=== PATIENT | female | born 1990 | race Caucasian/White ===

== ENCOUNTER 2016-02-29 16:12 | Emergency (ER) | payer BC, MEDICAID ==
[2016-02-29] MEDS ORDERED: DEXAMETHASONE SOD PHOSPHATE 10MG/ML VIAL PO ONE (17:19)
--- NOTE | 2016-02-29 17:25 | Emergency Department Record ---
History of Present Illness - General Chief complaint: ENT Stated complaint: EAR PAIN,PRIETO Time Seen by Provider: 02/29/16 17:13 Source: Patient Mode of Arrival: Ambulatory Limitations: No limitations - History of Present Illness Initial comments: 25 yo female present with sinus pain, drainage, ear pain and mild sore throat. No fevers. The nasal discharge is some what discolored. Onset/Timin -: Days(s) Severity: Mild Severity scale (1-10): 2 Quality: Aching Improves with: None Worsens with: None Associated Symptoms: Cough, Fever, Other - Related Data Home Medications Medication Instructions Recorded Confirmed Last Taken Sertraline HCl [Zoloft] 50 mg PO QD tab 01/19/16 02/29/16 Unknown Pnv95/Ferrous Fumarate/FA 1 each PO DAILY 02/29/16 02/29/16 02/29/16 [ Tablet] Previous Rx's Medication Instructions Recorded Amoxicillin [Amoxil] 500 mg PO TID #30 tab 02/29/16 Allergies Allergy/AdvReac Type Severity Reaction Status Date / Time minocycline Allergy hives Verified 02/29/16 16:32 Travel Screening - Travel/Exposure Within Last 30 Days Have you traveled within the last 30 days?: No - Travel Symptoms Symptom Screening: None Review of Systems Constitutional: Denies: Chills, Fever, Malaise, Weakness Eyes: Denies: Eye discharge, Eye pain, Photophobia, Vision change ENT: Reports: Congestion, Ear pain, Throat pain. Denies: Epistaxis Respiratory: Reports: Cough. Denies: Dyspnea, Hemoptysis, Stridor, Wheezes Cardiovascular: Denies: Chest pain, Palpitations, Syncope Endocrine: Denies: Fatigue Gastrointestinal: Denies: Abdominal pain, Diarrhea, Nausea, Vomiting Musculoskeletal: Denies: Back pain, Joint swelling, Myalgia Skin: Denies: Bruising, Change in color, Rash Neurological: Reports: Headache. Denies: Confusion, Numbness, Tingling, Tremors , Vertigo, Weakness Psychiatric: Denies: Anxiety Hematological/Lymphatic: Denies: Blood Clots, Easy bleeding, Easy bruising, Swollen glands Past Medical History - SOCIAL HISTORY Smoking Status: Former smoker Alcohol Use: None Drug Use: None - RESPIRATORY Hx Respiratory Disorders: No - CARDIOVASCULAR Hx Cardio Disorders: No - NEURO Hx Neuro Disorders: No - GI Hx GI Disorders: No - Hx Genitourinary Disorders: No - ENDOCRINE Hx Endocrine Disorders: No - MUSCULOSKELETAL Hx Musculoskeletal Disorders: No - PSYCH Hx Psych Problems: No - HEMATOLOGY/ONCOLOGY Hx Hematology/Oncology Disorders: No Family Medical History Any Significant Family History?: No Physical Exam - General General Appearance: Alert, Oriented x3, Cooperative, No acute distress Limitations: No limitations - Head Head exam: Normal inspection - Eye Eye exam: Normal appearance, PERRL. negative: Conjunctival injection, Periorbital swelling - ENT ENT exam: Normal exam, Mucous membranes moist, Normal orophraynx, TM's normal bilaterally Ear exam: Normal external inspection. negative: External canal tenderness Nasal Exam: Sinus tenderness (frontal and maxillary). negative: Discharge, Dried blood Mouth exam: negative: Drooling, Trismus Teeth exam: negative: Normal inspection Throat exam: Normal inspection. negative: Tonsillar erythema, Tonsillar exudate - Neck Neck exam: Normal inspection, Full ROM. negative: Lymphadenopathy, Tenderness - Respiratory Respiratory exam: Normal lung sounds bilaterally. negative: Accessory muscle use, Chest wall tenderness, Prolonged expiratory, Respiratory distress, Rhonchi , Stridor, Wheezes - Cardiovascular Cardiovascular Exam: Regular rate, Normal rhythm, Normal heart sounds - GI/Abdominal GI/Abdominal exam: Soft. negative: Tenderness - Rectal Rectal exam: Deferred - exam: Deferred - Extremities Extremities exam: Normal inspection. negative: Tenderness - Back Back exam: Reports: Normal inspection, Full ROM. Denies: Muscle spasm, Rash noted, Tenderness - Neurological Neurological exam: Alert, Oriented X3 - Psychiatric Psychiatric exam: Normal affect, Normal mood - Skin Skin exam: Dry, Intact, Normal color, Warm Course Vital Signs 02/29/16 16:24 Temperature 98.5 F Pulse Rate 95 H Respiratory 18 Rate Blood Pressure 95/61 Pulse Ox 100 - Reevaluation(s) Reevaluation #1: The examination is CW acute sinusitis Rx for Amoxicillin provided 02/29/16 17:26 Disposition Disposition: Discharge Clinical Impression: Sinusitis Qualifiers: Sinusitis location: frontal Chronicity: acute Recurrence: not specified as recurrent Qualified Code(s): J01.10 - Acute frontal sinusitis, unspecified Disposition: Home, Self-Care Condition: (1) Good Instructions: Sinusitis (ED) Additional Instructions: Call your doctor tomorrow for close follow up Return if you have fever, uncontrolled pain, any new symptoms or concerns Prescriptions: Amoxicillin [Amoxil] 500 mg PO TID #30 tab Forms: Patient Portal Access Time of Disposition: 17:24
== END 2016-02-29 17:39 | disposition home or self-care (01) ==
LOC: ER 16:12
DX: J01.10 Acute frontal sinusitis, unspecified (principal); R51 Headache
CPT/HCPCS: 99282